=== PATIENT | male | born 1995 | race Caucasian/White ===

== ENCOUNTER → 2017-11-29 | Outpatient (CLI) | payer OTHER ==
--- NOTE | 2017-11-29 16:07 | XR ---
Fourth digit left hand HISTORY: Trauma and pain 3 views of the fourth digit of the left hand Bone mineralization, joint spaces and alignment are maintained. There is soft tissue swelling. IMPRESSION: No fracture or dislocation. Follow-up as indicated.
== END ==
LOC: RADXRMAIN 11:53
PROVIDERS: ATTEND Physician Assistant
DX: S67.92XA Crushing injury of unspecified part(s) of left wrist, hand and fingers, initial encounter (principal)